=== PATIENT | female | born 1960 | race Caucasian/White ===

== ENCOUNTER 2018-02-07 10:35 | Emergency (ER) | payer BC ==
[2018-02-07] MEDS ORDERED: Bacitracin Oint 1 GM U/D Packet TOP ONE (10:46)
[2018-02-07] MEDS ORDERED: Amoxicillin/Clavulanate K 875-125 MG Tab PO ONE (10:46)
[2018-02-07] MEDS ORDERED: Diphtheria,Pertussis(Acell),Tetanus Vaccine 0.5 ML SDV IM ONE (10:48)
[2018-02-07] MEDS ORDERED: Lidocaine 1% 30 ML SDV INJECT ONE (10:56)
--- NOTE | 2018-02-07 11:39 | EDM.PDOC ---
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 Denies any other injury. Last tetanus vaccine >10yr ago. Onset: Today Duration: Constant Location: Reports: Lower Extremity, Right Quality: Reports: Ache Severity: Mild Improves with: Reports: None Worsens with: Reports: None Associated Symptoms: Reports: No Other Symptoms Right Leg Pain Score (Numeric/FACES): 3 Social & Family History - Family History Family Medical History: Noncontributory - Living Situation & Occupation Living situation: Reports: , with Spouse Occupation: Employed ED ROS GENERAL - Review of Systems Review Of Systems: ROS reveals no pertinent complaints other than HPI. ED EXAM, ANIMAL BITE - Physical Exam Exam: See Below Exam Limited By: No Limitations General Appearance: Alert, WD/WN, No Apparent Distress Throat/Mouth: Normal Voice Head: Atraumatic, Normocephalic Respiratory/Chest: No Respiratory Distress Extremities: Other (Rt lower leg with 2 posterior punct. wounds, and one anterior punct. wound, and one ant./lateral 1.5cm linear laceration) Neurological: Alert, No Motor/Sensory Deficits Psychiatric: Normal Affect, Normal Mood ED ANIMAL BITE PROCEDURES - Laceration/Wound Repair Right Lower Leg Lac/Wound Length In cm: 1.5 Appearance: Subcutaneous, Linear, Clean Distal NVT: Neuro & Vascular Intact, No Tendon Injury Anesthetic Type: Local Local Anesthesia - Lidocaine (Xylocaine): 1% Plain Local Anesthetic Volume: 5cc Skin Prep: Chlorhexidine (Hibiciens), Saline Saline Irrigation (cc's): 1,000 Exploration/Debridement/Repair: Wound Explored, In a Bloodless Field, Explored to Base, Minimal Debridement, Minimally Undermined Closed With: Sutures Suture Size: 3-0 # of Sutures: 3 Suture Type: Nylon, Interrupted Drain Placement: No Sterile Dressing Applied: Nurse Tetanus Status Addressed: Yes Complications: No Course - Vital Signs Last Recorded V/S: Last Vital Signs Temp 36.3 C 02/07/18 10:35 Pulse 77 02/07/18 10:35 Resp 14 02/07/18 10:35 BP 142/85 H 02/07/18 10:35 Pulse Ox 100 02/07/18 10:35 - Orders/Labs/Meds Orders: Active Orders 24 hr Category Date Time Status Vaccines to be Administered [RC] PER UNIT ROUTINE Care 02/07/18 10:48 Active Meds: Medications Discontinued Medications Generic Name Dose Route Start Last Admin Trade Name Teddy PRN Reason Stop Dose Admin Amoxicillin/Clavulanate Potassium 1 tab 02/07/18 10:46 02/07/18 11:01 Augmentin 875 Mg/125 Mg PO 02/07/18 10:47 1 tab ONETIME ONE Administration Bacitracin 1 dose 02/07/18 10:46 02/07/18 11:03 Bacitracin Oint 1 Gm TOP 02/07/18 10:47 1 dose ONETIME ONE Administration Diphtheria/Tetanus/Acell Pertussis 0.5 ml 02/07/18 10:48 02/07/18 11:02 Adacel IM 02/07/18 10:49 0.5 ml .ONCE ONE Administration Lidocaine HCl 30 ml 02/07/18 10:56 02/07/18 11:03 Xylocaine-Mpf 1% INJECT 02/07/18 10:57 30 ml ONETIME ONE Administration - Re-Assessments/Exams Free Text/Narrative Re-Assessment/Exam: 02/07/18 11:24 Police were notified of dog bite and presented to ER and interviewed the patient. Departure - Departure Time of Disposition: 11:23 Disposition: Home, Self-Care 01 Condition: Good Clinical Impression: Dog bite of right lower leg Qualifiers: Encounter type: initial encounter Qualified Code(s): S81.851A - Open bite, right lower leg, initial encounter; W54.0XXA - Bitten by dog, initial encounter - Discharge Information Instructions: Animal Bite, [id number], Sutured Wound Care, [id number] Forms: ED Department Discharge Additional Instructions: RX: Augmentin 875mg. Return to ER if any signs of infection develop. Follow up in 7 to 10 days for suture removal. - My Orders Last 24 Hours: My Active Orders 02/07/18 10:48 Vaccines to be Administered [RC] PER UNIT ROUTINE - Assessment/Plan Last 24 Hours: My Active Orders 02/07/18 10:48 Vaccines to be Administered [RC] PER UNIT ROUTINE I have read and agree with the documentation that has been completed regarding this visit. By signing this record, I attest that the documentation was completed in my physical presence and is an accurate record of the encounter.
== END 2018-02-07 11:42 | disposition home or self-care (01) ==
LOC: DL.ED 10:35
DX: S81.851A Open bite, right lower leg, initial encounter (principal); Z23 Encounter for immunization; W54.0XXA Bitten by dog, initial encounter
CPT/HCPCS: 12001; 90471; 90715; 99283; A9270